=== PATIENT | male | born 1995 | race African-American/Black ===

== ENCOUNTER 2018-10-28 12:15 | Observation (INO) | payer OTHER ==
[2018-10-28 14:55] LABS: Hemoglobin 11.4 g/dL (14.0-18.0); Mean Corpuscular HGB CONC 31.8 g/dL (32.0-36.0); Mean Corpuscular Hemoglobin 29.5 pg (27.0-31.0); Mean Corpuscular Volume 92.7 fL (78.0-98.0); Mean Platelet Volume 7.4 fL (7.4-10.4); Platelet Count 361 thou/uL (130-400); RBC Distribution Width 12.8 % (11.5-14.5); Red Blood Cell (RBC) Count 3.88 mill/uL (4.70-6.10); White Blood Cell (WBC) Count 9.8 thou/uL (4.8-10.8)
[2018-10-28] MEDS ORDERED: Dexamethasone 20 MG/5 ML VIAL ONE (14:57)
[2018-10-28] MEDS ORDERED: Succinylcholine Chloride 20 MG/ML 10 ml SYRINGE FS ONE (14:57)
[2018-10-28] MEDS ORDERED: PROPOFOL 200 MG/20 ML VIAL ONE (14:57)
[2018-10-28] MEDS ORDERED: diphenhydrAMINE 50 MG/ML VIAL ONE (14:57)
[2018-10-28] MEDS ORDERED: Lidocaine 1% PF 5 ML VIAL ONE (14:57)
[2018-10-28] MEDS ORDERED: Metoclopramide HCl 10 MG/2 ML VIAL ONE (14:57)
[2018-10-28] MEDS ORDERED: Ondansetron PF 4 MG/2 ML Vial ONE (14:57)
[2018-10-28 15:07] LABS: ALT (SGPT) 19 U/L (8-55); AST (SGOT) 22 U/L (5-34); Albumin 4.1 g/dL (3.5-5.0); Alkaline Phosphatase 64 U/L (40-150); Anion Gap 15 mmol/L (10-20); BUN (Urea Nitrogen) 14 mg/dL (8.9-20.6); Bilirubin, Total 0.6 mg/dL (0.2-1.2); Calc. Creatinine Clearance 0 mL/min (70-130); Calcium 9.9 mg/dL (7.8-10.44); Carbon Dioxide 24 mmol/L (22-29); Chloride 106 mmol/L (98-107); Estimated GFR-MDRD Greater than 90; Glucose 78 mg/dL (70-105); Potassium 3.9 mmol/L (3.5-5.1); Protein, Total 7.1 g/dL (6.0-8.3); Sodium 141 mmol/L (136-145)
[2018-10-28 15:09] LABS: Lymphocytes 18 % (21-51); MDiff Complete? YES; Monocytes 17 % (0-10); Neutrophil 64 % (42-75); Ovalocytes SLIGHT = 2-5 cells (100X) (0-1/hpf); Platelet Morphology Comment Appears Adequate; Polychromasia SLIGHT = 2-3 cells (100X) (0-2/hpf); Reactive Lymphocytes 1 % (0-10)
--- NOTE | 2018-10-28 15:10 | CT ---
CT PELVIS: HISTORY: Foreign body in penis. FINDINGS: Noncontrast-enhanced CT pelvis obtained. There is a radiopaque foreign body in the bulbar urethra or region of the bulbar urethra. No other abnormality is seen. IMPRESSION: Radiopaque foreign body in the expected location of the bulbar urethra. POS: ROBINA
[2018-10-28] MEDS ORDERED: Acetaminophen 325 MG TAB ONE (17:12)
[2018-10-28] MEDS ORDERED: Iothalamate Meglumine 60% 50 ML VIAL FS ONE (19:16)
[2018-10-28] MEDS ORDERED: Fentanyl 100 MCG/2 ML VIAL ONE (19:33)
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
[2018-10-28] MEDS ORDERED: Meperidine HCl/PF 25 MG/ML VIAL ONE (21:07)
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
== END 2018-10-28 22:05 ==
LOC: ERS 12:15 → SURG A 19:48 → SDC/OP 20:07 → SURG A 20:29
PROVIDERS: ADMIT Urology; ATTEND Urology
PROC: 0TCD8ZZ Extirpation of Matter from Urethra, Via Natural or Artificial Opening Endoscopic (ICD-10-PCS; principal; 2018-10-28)
DX: T19.0XXA Foreign body in urethra, initial encounter (principal); F91.8 Other conduct disorders; Z98.890 Other specified postprocedural states
CPT/HCPCS: 36415; 72192; 76000; 80053; 85025; 96360; J0131; J1100; J1200; J2001; J2175; J2405; J2704; J2765; J3010; Q9961